=== PATIENT | female | born 1935 | race American Indian/Alaskan Native ===

== ENCOUNTER 2018-12-03 11:13 | Emergency (ER) | payer MEDICARE ==
--- NOTE | 2018-12-03 12:22 | Emergency Department Report ---
ED CPR HPI - General Chief Complaint: Cardiac Arrest/CPR Stated Complaint: CARDIAC ARREST Time Seen by Provider: 12/03/18 11:47 Source: EMS Mode of arrival: Stretcher Limitations: Other - History of Present Illness Initial Comments: Mrs. Montana is an 83-year-old female history of insulin-dependent diabetes who presents in cardiac arrest. Family discovered her unresponsive. She received 40 units of insulin prior to EMS arrival. Blood sugar was normal according to EMS evaluation. Patient was found to be in asystole rhythm. She was given epin ephrine, sodium bicarbonate. Airway assist device, Chacho airway was inserted. Down time total 25 minutes. Complaint: found unresponsive Place: home Shock Advised: No Initial Findings in the Field: unresponsive ROSC in the Field: No Associated Injuries: No Treatments Prior to Arrival: other airway device, chest compressions, epinephrine mgs #, sodium bicarbonate - Related Data Allergies Allergy/AdvReac Type Severity Reaction Status Date / Time No Known Allergies Allergy Unverified 12/03/18 12:08 ED Review of Systems ROS: Stated complaint: CARDIAC ARREST Other details as noted in HPI Comment: Unobtainable due to pts medical conditions (cardiac arrest) ED Past Medical Hx - Past Medical History Previous Medical History?: Yes Hx Diabetes: Yes ED Physical Exam - General Limitations: Other General appearance: other (lifeless no spontaneous movement) - Head Head exam: Present: atraumatic, normocephalic - Eye Pupils: Present: other (fixed nonreactive pupils) - ENT ENT exam: Present: mucous membranes dry, other (pale mucosa Chacho Airway in place) - Neck Neck exam: Present: normal inspection. Absent: tenderness, meningismus - Respiratory Respiratory exam: Present: other (no spontaneous respirations). Absent: respiratory distress - Cardiovascular Cardiovascular Exam: Present: other (no auscultated heart sounds) - GI/Abdominal GI/Abdominal exam: Present: other (no bowel sounds). Absent: distended - Extremities Exam Extremities exam: Present: other (left BKA) - Neurological Exam Neurological exam: Present: other (lifeless) - Psychiatric Psychiatric exam: Present: other (lifeless) - Skin Skin exam: Present: pallor, other (cool to touch) ED Medical Decision Making - Medical Decision Making Mrs. Montana presents in asystole/PEA cardiac arrest. Total downtime 25 minutes. Chest compressions were continued in the ED. PEA rhythm quickly deteriorated to asystole. Further efforts at resuscitation would have been futile after prolonged resuscitation by EMS. Time of 1114 I and charge nurse notified son. Son informed other family members en route. Critical care attestation.: If time is entered above; I have spent that time in minutes in the direct care of this critically ill patient, excluding procedure time. ED Disposition Clinical Impression: Cardiac arrest Disposition: DC-20 Is pt being admited?: No Does the pt Need Aspirin: No Condition: Stable Time of Disposition: 11:14
== END 2018-12-03 17:23 ==
LOC: ED 11:13
DX: I46.9 Cardiac arrest, cause unspecified (principal)
CPT/HCPCS: 92950